=== PATIENT | female | born 1945 | race Caucasian/White ===

== ENCOUNTER 2016-03-23 06:54 | Emergency (ER) | payer OTHER ==
[2016-03-23] MEDS ORDERED: IOPAMIDOL 370 (76%) 100 ML VIAL IV ONE (06:55)
[2016-03-23] MEDS ORDERED: ONDANSETRON 4 MG/2ML 2 ML VIAL ONE (07:24)
[2016-03-23] MEDS ORDERED: LACTATED RINGERS 1,000 ML ONE (07:25)
[2016-03-23 07:39] LABS: ABSOLUTE NEUTROPHIL COUNT 7.1 K/mm3 (1.8-7.7); BASO # 0.1 K/mm3 (0.0-0.2); BASO % 0.7 % (0.2-1.0); EOS # 0.7 (0.0-0.5); EOS % 5.3 % (0.9-2.9); HEMATOCRIT 40.3 % (37.0-47.0); HEMOGLOBIN 13.3 gm/l (12.0-16.0); IMM NEUT # 0.1 K/mm3 (0-0.2); IMM NEUT% 0.6 % (0-1); LYMPH % 31.7 % (15-45); MEAN CELL VOLUME 96.4 fl (81.0-99.0); MEAN CORPUSCULAR HEMOGLOBIN 31.8 pg (27.0-31.0); MEAN PLATELET VOLUME 10.2 fl (7.4-10.4); MONO # 0.7 (0.0-0.8); MONO % 5.2 % (4-12); NEUT % 56.5 % (43-75); PLATELET COUNT 301 K/mm3 (130-400); RED CELL DISTRIBUTION WIDTH 14.6 % (11.5-14.5)
[2016-03-23 07:53] LABS: INR 0.94; PARTIAL THROMBOPLASTIN TIME 20.5 SECONDS (24.5-33.0); PROTHROMBIN TIME 9.9 SECONDS (9.3-11.4)
[2016-03-23 07:58] LABS: ALB/GLOB RATIO 1.6 (>1.0); ALBUMIN 4.3 gm/dL (3.5-5.7); CALCIUM 9.7 mg/dL (8.6-10.3)
[2016-03-23 08:57] LABS: URINE BILIRUBIN NEGATIVE (NEGATIVE); URINE BLOOD NEGATIVE (NEGATIVE); URINE GLUCOSE (UA) 2+ (NEGATIVE); URINE LEUKOCYTE ESTERASE NEGATIVE (NEGATIVE); URINE NITRITE NEGATIVE (NEGATIVE); URINE PROTEIN NEGATIVE (NEGATIVE); URINE UROBILINOGEN NORMAL (0-1 mg/dl)
--- NOTE | 2016-03-23 09:01 | CT ---
ADDENDUM #1 CORRECTION: Three-dimensional rotational reformatted imaging of the intracranial was performed with maximum intensity projection technique on a dedicated workstation, and reviewed separately. ORIGINAL REPORT INTRACRANIAL CTA WITH CONTRAST HEAD CT WITHOUT CONTRAST. HISTORY: Dizziness. Prior to and following administration of 80 cc Isovue 370 intravenous contrast contiguous axial images acquired from skull base to vertex. Three-dimensional reformatted imaging was not performed. COMPARISON:None. BRAIN VOLUME: Moderate diffuse volume loss. WHITE MATTER: Extensive hypoattenuation compatible with moderate microvascular disease. VENTRICULAR SIZE:No gross ventriculomegaly. FOCAL MASS EFFECT:None. ACUTE INTRACRANIAL HEMORRHAGE:None. INTRACRANIAL CIRCULATION: Moderate atherosclerotic calcifications. CALVARIUM:Grossly intact. VISIBLE PARANASAL SINUSES AND MASTOID AIR CELLS:Grossly clear. POSTERIOR CIRCULATION: No high-grade stenosis or occlusion noted. ANTERIOR CIRCULATION: No high-grade stenosis or occlusion noted. Mild stenoses of the cavernous carotid arteries, right greater than left. POST CONTRAST IMAGING: No dominant focal enhancing lesion identified. SACCULAR ANEURYSM: None identified. IMPRESSION: 1. Moderate volume loss with changes of microvascular disease and intracranial atherosclerotic calcification. 2. No gross mass effect, ventriculomegaly, or acute intracranial hemorrhage. 3. No high-grade stenosis, occlusion, or dominant saccular aneurysm. 4. No abnormally enhancing lesions. Results were electronically transmitted to the electronic medical record at 03/23/2016 at 0857 hours.
[2016-03-23 09:03] LABS: URINE APPEARANCE CLEAR; URINE COLOR YELLOW
--- NOTE | 2016-03-23 09:10 | CT ---
ADDENDUM #1 Three-dimensional rotational and in-axis reformatted imaging of the extracranial vasculature was performed with maximum intensity projection and volume rendered technique on a dedicated workstation, and reviewed separately. ORIGINAL REPORT NECK CTA HISTORY: Dizziness. Following the administration of 80 cc of Isovue 370 contiguous axial images were acquired from the level of the lateral ventricles, to the level of the coco. Diameter stenosis was calculated utilizing NASCET criteria. AORTIC ARCH: Unremarkable. Normal caliber. Bovine arch configuration, anatomic variant. Aortic origin of left vertebral artery, anatomic variant. INNOMINATE AND SUBCLAVIAN ARTERIES: Calcific plaque results in moderate 50% stenosis of the right subclavian artery origin with minor poststenotic dilatation.. VERTEBRAL ARTERIES: Tortuous proximal vertebral arteries. COMMON CAROTID ARTERIES: Tortuous appearance. There is is asymmetrically low bifurcation on the left.. INTERNAL CAROTID ARTERIES: Tortuous on the left with retropharyngeal extension. Mixed plaque deposition results in mild less than 30% stenosis bilaterally. SOFT TISSUES: Moderate prominence of a right IIA lymph node, 1.5 cm in size. Heterogeneous attenuation of the thyroid gland with a heterogeneously enhancing lesion on the right measuring up to 1.5 cm in size.. OSSEOUS STRUCTURES: Moderate disc degeneration at the C5-6 level. Incompletely depicted low-attenuation lesion of the sternum, 1 cm in size. IMPRESSION: 1. Tortuous internal carotid arteries with mild stenoses of the proximal internal carotid arteries. No high-grade stenosis or occlusion of the common carotid, internal carotid, or vertebral arteries. 2. Anatomic variants, including low left carotid bifurcation, as well as bovine arch variant in aortic origin of the left vertebral artery. 3. 1.5 cm enhancing right-sided lesion of the thyroid gland, recommend sonographic correlation. 4. Focal disc degeneration at C5-6. Consider eventual follow-up assessment of the chest given incompletely depicted low-attenuation lesion. Results were electronically transmitted to the electronic medical record at 03/23/2016 at 0906 hours.
[2016-03-23] MEDS ORDERED: ASPIRIN (UNCOATED) 325 MG TABLET ONE (10:40)
== END 2016-03-23 11:02 | disposition short-term general hospital (02) ==
LOC: ED 06:54
DX: R42 Dizziness and giddiness (principal); I10 Essential (primary) hypertension; E11.9 Type 2 diabetes mellitus without complications
CPT/HCPCS: 85025; 80053; 85730; 85610; 81003; 84484; 70450; 70496; 70498; 99284 ×2; 96374; 96361; 82962; 93005; A9270; J2405; J7120; Q9967